=== PATIENT | female | born 1930 | race American Indian/Alaskan Native ===

== ENCOUNTER 2017-09-22 14:54 | Day surgery (SDC) | payer MEDICARE, OTHER ==
[2017-09-22] MEDS ORDERED: NACL 0.9% 1000 ML 1,000 ML IV SCH (16:00)
[2017-09-22] MEDS ORDERED: XYLOCAINE MPF 2% ONE (16:00)
[2017-09-22] MEDS ORDERED: DIPRIVAN 10 MG/ML IV ONE (16:06)
--- NOTE | 2017-09-22 16:14 | Anesthesia Consultation ---
Anesthesia Consult and Med Hx Date of service: 09/22/17 - Airway Anesthetic Teeth Evaluation: Good, Partials (lower) ROM Head & Neck: Adequate Mental/Hyoid Distance: Adequate Mallampati Class: Class II Intubation Access Assessment: Probably Good - Pre-Operative Health Status ASA Pre-Surgery Classification: ASA2 Proposed Anesthetic Plan: MAC - Pulmonary Hx Smoking: No Hx Sleep Apnea: No - Cardiovascular System Hx Hypertension: Yes - Central Nervous System Hx Back Pain: No (s/p right shoulder replacement) Hx Psychiatric Problems: No - Other Systems Hx Cancer: No
--- NOTE | 2017-09-22 16:14 | Anesthesia Day of Surgery ---
Anesthesia Day of Surgery - Day of Surgery Patient Examined: Yes Patient H&P Reviewed: Yes Patient is NPO: Yes
[2017-09-22] MEDS ORDERED: WATER FOR IRRIG STERILE IR ONE (16:19)
--- NOTE | 2017-09-22 17:03 | Operative Report ---
Operative Report Operative Report: Date: 09/22/2017 Operative Report: Date of procedure: 09/22/2017 Procedure: Esophagogastroduodenoscopy with multiple mucosal biopsies. Attending physician: Yonatan Turk MD Spindle Sander: Yonatan Turk MD Indication: Patient is a 86 -year-old female who presented with a history of epigastric pain, heartburn, and indigestion anorexia, early satiety. An upper endoscopy is done to assess patient, so that treatment may be directed based on the findings. Consent: Informed consent was obtained after advising the patient and family regarding nature of this procedure, its indications, potential benefits as well as possible complications including but not limited to bleeding perforation and adverse reaction to medication, infection as well as other cardiopulmonary complications. An informed written and verbal consent was then obtained after due opportunity was provided for questions and answers. Monitoring: Patient was monitored continuously with pulse oximetry and electrocardiographic recordings as well as blood pressure recordings. Vital signs remained stable throughout this procedure with no untoward events. Preoperative assessment: Patient was assessed immediately prior to this procedure for capacity to tolerate monitored anesthesia care and moderate sedation as well as general anesthesia. Patient's ASA classification is 3, Mallampati class is 2, Hyomental distance is 3. Instrument: [employer] video endoscope Medications: Propofol given intravenously in divided doses. For details please refer to anesthesia records. Description of procedure: Patient was placed in the left lateral decubitus position after achieving sedation, the endoscope was introduced into the esophagus under direct vision. It was then advanced beyond the esophagus into the stomach and then beyond the stomach into the duodenum and to the second portion of the duodenum. It was subsequently withdrawn with careful inspection of all mucosal surfaces with the following findings. Findings: Patient has an irregular Z line at 40 cm. There was a small diminutive sliding hiatal hernia seen on entry into the stomach. There was some erythema in the gastric antrum. Biopsies of the antrum were obtained for histopathology. The duodenum was normal to second portion. Previously noted gastric ulcers have now resolved completely. Impression: Irregular Z line. Gastric antral erythema Small Hiatal hernia. Plan: Continue treatment with proton pump inhibitors. Follow pathology report. Direct additional treatment based on the pathology report.
--- NOTE | 2017-09-22 17:03 | Discharge Summary ---
Short Stay Discharge Plan Activity: advance as tolerated Weight Bearing Status: Weight Bear as Tolerated Diet: regular
[2017-09-22 17:37] VITALS: BP 151/86
== END 2017-09-22 14:55 | disposition home or self-care (01) ==
LOC: GIO 14:54
PROVIDERS: ATTEND Internal Medicine Gastroenterology
DX: K31.89 Other diseases of stomach and duodenum (principal); K44.9 Diaphragmatic hernia without obstruction or gangrene; K29.70 Gastritis, unspecified, without bleeding; I10 Essential (primary) hypertension; Z79.82 Long term (current) use of aspirin; Z79.899 Other long term (current) drug therapy; Z88.0 Allergy status to penicillin; Z98.890 Other specified postprocedural states
CPT/HCPCS: 43239; 88305; 88342; J2704; J7030